=== PATIENT | female | born 1930 | race Caucasian/White ===

== ENCOUNTER → 2016-05-09 | Outpatient (CLI) | payer MEDICARE, OTHER ==
[~2016-05-09] MED LIST: CALCIUM CITRATE PO; GLUC1500 PO; HYDR12.58 PO; MELO-190 PO; MULT1TAB60 PO; NAPR500T3 PO; OMEG300C PO; VITA100C8 PO; VITA1TAB3 PO
== END | disposition home or self-care (01) ==
LOC: ROC 14:51
PROVIDERS: ATTEND Radiology Radiation Oncology
DX: R91.1 Solitary pulmonary nodule (principal); Z85.118 Personal history of other malignant neoplasm of bronchus and lung; Z90.2 Acquired absence of lung [part of]
CPT/HCPCS: G0463

== ENCOUNTER → 2016-06-18 | Outpatient (CLI) | payer MEDICARE, OTHER | END | disposition home or self-care (01) | LOC: ROC 11:28 | PROVIDERS: ATTEND Radiology Radiation Oncology | DX: C34.91 Malignant neoplasm of unspecified part of right bronchus or lung (principal) | CPT/HCPCS: G0463 ==

== ENCOUNTER → 2016-08-14 | Outpatient (CLI) | payer MEDICARE, OTHER | END | disposition home or self-care (01) | LOC: CFH 10:05 | PROVIDERS: ATTEND Radiology Radiation Oncology | DX: C34.11 Malignant neoplasm of upper lobe, right bronchus or lung (principal) | CPT/HCPCS: 71250 ==

== ENCOUNTER → 2016-10-08 | Outpatient (CLI) | payer MEDICARE, OTHER | END | disposition home or self-care (01) | LOC: ROC 10:32 → EDSTATUS 16:51 | PROVIDERS: ATTEND Radiology Radiation Oncology | DX: R91.8 Other nonspecific abnormal finding of lung field (principal); M25.511 Pain in right shoulder; Z87.891 Personal history of nicotine dependence; Z85.118 Personal history of other malignant neoplasm of bronchus and lung | CPT/HCPCS: G0463 ==

== ENCOUNTER → 2016-12-03 | Outpatient (CLI) | payer MEDICARE, OTHER ==
[~2016-12-03] MED LIST changes: -MELO-190 PO; +MELO7.5T31 PO
== END | disposition home or self-care (01) ==
LOC: CFH 09:36
PROVIDERS: ATTEND Radiology Radiation Oncology
DX: I31.3 Pericardial effusion (noninflammatory) (principal); C34.11 Malignant neoplasm of upper lobe, right bronchus or lung; J43.9 Emphysema, unspecified
CPT/HCPCS: 71250

== ENCOUNTER → 2016-12-06 | Outpatient (CLI) | payer MEDICARE, OTHER | END | disposition home or self-care (01) | LOC: ROC 11:04 | PROVIDERS: ATTEND Radiology Radiation Oncology | DX: Z08 Encounter for follow-up examination after completed treatment for malignant neoplasm (principal); C34.90 Malignant neoplasm of unspecified part of unspecified bronchus or lung | CPT/HCPCS: 99213; G0463 ==

== ENCOUNTER → 2017-03-25 | Outpatient (CLI) | payer MEDICARE, OTHER ==
[~2017-03-25] MED LIST changes: -GLUC1500 PO; +GLUC15006 PO; +LIDOCAINE 1%, 20ML ONE; -NAPR500T3 PO; +NAPR500T4 PO
== END ==
LOC: RAD 12:30
PROVIDERS: ATTEND Radiology Radiation Oncology
DX: C34.11 Malignant neoplasm of upper lobe, right bronchus or lung (principal)
CPT/HCPCS: 20206; 76942; 88305; J3490; 88341; 88342; 88360; G0461

== ENCOUNTER → 2017-03-28 | Outpatient (CLI) | payer MEDICARE, OTHER ==
[~2017-03-28] MED LIST changes: +GADOBUTROL 7.5 MMOL/7.5 ML VIAL ONE; -LIDOCAINE 1%, 20ML ONE
== END | disposition home or self-care (01) ==
LOC: CFH 09:45
PROVIDERS: ATTEND Radiology Radiation Oncology
DX: C34.11 Malignant neoplasm of upper lobe, right bronchus or lung (principal); R22.1 Localized swelling, mass and lump, neck
CPT/HCPCS: 70543; 70553; A9585

== ENCOUNTER → 2017-04-01 | Outpatient (CLI) | payer MEDICARE, OTHER ==
[~2017-04-01] MED LIST changes: -GADOBUTROL 7.5 MMOL/7.5 ML VIAL ONE
== END | disposition home or self-care (01) ==
LOC: ROC 09:15
PROVIDERS: ATTEND Radiology Radiation Oncology
DX: Z08 Encounter for follow-up examination after completed treatment for malignant neoplasm (principal); J44.9 Chronic obstructive pulmonary disease, unspecified; Z85.118 Personal history of other malignant neoplasm of bronchus and lung; Z92.3 Personal history of irradiation; Z80.3 Family history of malignant neoplasm of breast; Z90.2 Acquired absence of lung [part of]; Z87.891 Personal history of nicotine dependence
CPT/HCPCS: G0463

== ENCOUNTER → 2017-05-03 | Outpatient (CLI) | payer MEDICARE, OTHER | LOC: ROC 12:49 | PROVIDERS: ATTEND Radiology Radiation Oncology | DX: C77.9 Secondary and unspecified malignant neoplasm of lymph node, unspecified (principal); Z85.118 Personal history of other malignant neoplasm of bronchus and lung; Z90.2 Acquired absence of lung [part of] | CPT/HCPCS: G0463 ==

== ENCOUNTER → 2017-08-02 | Outpatient (CLI) | payer MEDICARE, OTHER ==
[~2017-08-02] MED LIST changes: +NAPR-685 PO; -NAPR500T4 PO
== END | disposition home or self-care (01) ==
LOC: ROC 08:45
PROVIDERS: ATTEND Radiology Radiation Oncology
DX: Z08 Encounter for follow-up examination after completed treatment for malignant neoplasm (principal); I89.0 Lymphedema, not elsewhere classified; M25.511 Pain in right shoulder
CPT/HCPCS: G0463

== ENCOUNTER → 2017-08-26 | Outpatient (CLI) | payer MEDICARE, OTHER | END | disposition home or self-care (01) | LOC: CFH 12:48 | PROVIDERS: ATTEND Radiology Radiation Oncology | DX: C34.90 Malignant neoplasm of unspecified part of unspecified bronchus or lung (principal); M51.34 Other intervertebral disc degeneration, thoracic region; R91.1 Solitary pulmonary nodule; I31.3 Pericardial effusion (noninflammatory); J43.2 Centrilobular emphysema | CPT/HCPCS: 71250 ==

== ENCOUNTER → 2017-08-29 | Outpatient (CLI) | payer MEDICARE, OTHER | END | disposition home or self-care (01) | LOC: ROC 08:31 | PROVIDERS: ATTEND Radiology Radiation Oncology | DX: Z08 Encounter for follow-up examination after completed treatment for malignant neoplasm (principal); C34.11 Malignant neoplasm of upper lobe, right bronchus or lung | CPT/HCPCS: G0463 ==

== ENCOUNTER → 2017-09-24 | Outpatient (CLI) | payer MEDICARE, OTHER | END | disposition home or self-care (01) | LOC: ROC 07:05 | PROVIDERS: ATTEND Radiology Radiation Oncology | DX: C77.0 Secondary and unspecified malignant neoplasm of lymph nodes of head, face and neck (principal); C34.11 Malignant neoplasm of upper lobe, right bronchus or lung | CPT/HCPCS: G0463 ==

== ENCOUNTER → 2017-09-30 | Outpatient (CLI) | payer MEDICARE, OTHER ==
[~2017-09-30] MED LIST changes: +GADOBUTROL 7.5 MMOL/7.5 ML PFS ONE
== END | disposition home or self-care (01) ==
LOC: RAD 09:26
PROVIDERS: ATTEND Radiology Radiation Oncology
DX: C77.0 Secondary and unspecified malignant neoplasm of lymph nodes of head, face and neck (principal); C34.11 Malignant neoplasm of upper lobe, right bronchus or lung
CPT/HCPCS: 70543; A9585

== ENCOUNTER 2017-11-20 10:23 | Inpatient (IN) | payer MEDICARE, OTHER ==
[~2017-11-20] VITALS: Ht 157.5 cm; Wt 36.7 kg
[~2017-11-20 10:23] MED LIST changes: -GADOBUTROL 7.5 MMOL/7.5 ML PFS ONE
[2017-11-20] MEDS ORDERED: SODIUM CHLORIDE FLUSH 10ML SYR IVF ONE (11:00)
[2017-11-20 11:39] LABS: INTERNATIONAL NORMALIZED RATIO 1.08 (0.93-1.1); PROTHROMBIN TIME 11.2 Seconds (9.6-11.5)
[2017-11-20 11:40] LABS: ALANINE AMINOTRANSFERASE 15 U/L (12-78); ALBUMIN 2.8 g/dL (3.4-5.0); ANION GAP 9 mmol/L (5-15); BASOPHILS # (AUTO) 0.02 x10^3/uL (0-0.1); BASOPHILS % (AUTO) 0 % (0-1); CALCIUM 8.9 mg/dL (8.5-10.1); CHLORIDE 105 mmol/L (98-107); CREATININE 0.66 mg/dL (0.55-1.02); EOSINOPHILS # (AUTO) 0.02 x10^3/uL (0-0.4); EOSINOPHILS % (AUTO) 0 % (1-7); LYMPHOCYTES # (AUTO) 0.86 x10^3/uL (1-3.4); LYMPHOCYTES % (AUTO) 7 % (22-44); MD NO; MEAN CORPUSCULAR HEMOGLOBIN 30.3 pg (27.0-34.8); MEAN CORPUSCULAR HGB CONC 32.4 g/dL (32.4-35.8); MEAN CORPUSCULAR VOLUME 93.6 fL (80-100); MEAN PLATELET VOLUME 6.7 fL (7.4-10.4); MONOCYTES % (AUTO) 6 % (2-9); NEUTROPHILS % (AUTO) 86 % (42-75); PLATELET COUNT 499 x10^3/uL (130-400); RED BLOOD COUNT 4.35 x10^6/uL (3.82-5.3); RED CELL DISTRIBUTION WIDTH 15.2 % (9.6-15.2)
[2017-11-20 11:45] LABS: ALKALINE PHOSPHATASE 108 U/L (45-117); BILIRUBIN,TOTAL 0.6 mg/dL (0.2-1.0); TOTAL PROTEIN 6.6 g/dL (6.4-8.2); TROPONIN I < 0.015 ng/mL (0.000-0.045)
[2017-11-20] MEDS ORDERED: SODIUM CHLORIDE 0.9% 1,000 ML IV ONE (13:06)
[2017-11-20] MEDS ORDERED: SODIUM CHLORIDE 0.9% 1,000ML IVBOLUS ONE (13:30)
[2017-11-20] MEDS ORDERED: SODIUM CHLORIDE FLUSH 10ML SYR IVF PRN (13:30)
[2017-11-20] MEDS ORDERED: TRAM100T13 PO (13:43)
[2017-11-20 14:06] VITALS: BP 126/64
[2017-11-20] MEDS ORDERED: NS + 20MEQ KCL 1,000 ML IV SCH (14:27)
[2017-11-20] MEDS ORDERED: DOCUSATE 100 MG CAPSULE PO PRN (14:30)
[2017-11-20] MEDS ORDERED: ACETAMINOPHEN 325 MG TABLET PO PRN (14:30)
[2017-11-20] MEDS ORDERED: POLYETHYLENE GLYCOL 17 GM PACKET PO PRN (14:30)
[2017-11-20] MEDS ORDERED: ONDANSETRON 2MG/ML, 2ML IVPush PRN (14:30)
[2017-11-20] MEDS: CEFTRIAXONE PMX 1GM/50ML 50 ML IV SCH (15:19)
[2017-11-20] MEDS: ENOXAPARIN 40 MG/0.4 ML SQ SCH (15:20)
[2017-11-20 19:44] VITALS: BP 96/60
[2017-11-20] MEDS: NAPROXEN 500 MG TABLET PO SCH (20:58)
[2017-11-21 02:29] VITALS: BP 113/65
[2017-11-21 04:38] LABS: BASOPHILS # (AUTO) 0.02 x10^3/uL (0-0.1); BASOPHILS % (AUTO) 0 % (0-1); EOSINOPHILS # (AUTO) 0.07 x10^3/uL (0-0.4); EOSINOPHILS % (AUTO) 1 % (1-7); LYMPHOCYTES # (AUTO) 1.05 x10^3/uL (1-3.4); LYMPHOCYTES % (AUTO) 13 % (22-44); MD NO; MEAN CORPUSCULAR HEMOGLOBIN 30.5 pg (27.0-34.8); MEAN CORPUSCULAR HGB CONC 32.6 g/dL (32.4-35.8); MEAN CORPUSCULAR VOLUME 93.4 fL (80-100); MEAN PLATELET VOLUME 6.7 fL (7.4-10.4); MONOCYTES # (AUTO) 0.66 x10^3/uL (0.2-0.8); MONOCYTES % (AUTO) 8 % (2-9); NEUTROPHILS # (AUTO) 6.32 x10^3/uL (1.8-6.8); NEUTROPHILS % (AUTO) 78 % (42-75); PLATELET COUNT 442 x10^3/uL (130-400); RED BLOOD COUNT 3.83 x10^6/uL (3.82-5.3); RED CELL DISTRIBUTION WIDTH 15.6 % (9.6-15.2)
[2017-11-21 04:47] LABS: ANION GAP 8 mmol/L (5-15); CHLORIDE 112 mmol/L (98-107); CREATININE 0.37 mg/dL (0.55-1.02)
[2017-11-21 05:41] LABS: CULTURE INDICATED? YES; MICROSCOPIC INDICATED
[2017-11-21 06:30] VITALS: BP 130/73
[2017-11-21] MEDS ORDERED: TEMPLATE NON-FORMULARY MED. (Glucosamine Hcl** 1,500 MG) PO SCH (09:00)
[2017-11-21] MEDS: MULTIVITAMIN 1 TABLET PO SCH (09:50)
[2017-11-21] MEDS: SENNA/DOCUSATE TABLET PO SCH (09:50)
[2017-11-21] MEDS: NAPROXEN 500 MG TABLET PO SCH ×2 (09:51→21:10)
[2017-11-21 13:55] VITALS: BP 96/62
[2017-11-21] MEDS ORDERED: NS + 20MEQ KCL 1,000 ML IV SCH (14:30)
[2017-11-21] MEDS: ENOXAPARIN 40 MG/0.4 ML SQ SCH (15:17)
[2017-11-21] MEDS: CEFTRIAXONE PMX 1GM/50ML 50 ML IV SCH (15:17)
[2017-11-21 19:46] VITALS: BP 102/63
[2017-11-22 00:39] VITALS: BP 97/61
[2017-11-22 08:00] VITALS: BP 124/76
[2017-11-22] MEDS: SENNA/DOCUSATE TABLET PO SCH (10:12)
[2017-11-22] MEDS: MULTIVITAMIN 1 TABLET PO SCH (10:12)
[2017-11-22] MEDS: NAPROXEN 500 MG TABLET PO SCH (10:13)
[2017-11-22 12:26] VITALS: BP 107/68
[2017-11-22] MEDS ORDERED: SULF1TAB24 PO (13:48)
[2017-11-22] MEDS ORDERED: ENOXAPARIN 30 MG/0.3 ML SQ SCH (15:00)
== END 2017-11-22 15:55 | disposition home or self-care (01) | DRG 871 ==
LOC: ED 12:30 → EDIP 13:06 → 4NOR 13:59 → DCLOUNGE 11-22 15:45
PROVIDERS: ADMIT Hospitalist; ATTEND Family Medicine
DX: A41.9 Sepsis, unspecified organism (principal); L89.93 Pressure ulcer of unspecified site, stage 3; E43 Unspecified severe protein-calorie malnutrition; N39.0 Urinary tract infection, site not specified; Z68.1 Body mass index [BMI] 19.9 or less, adult; E86.0 Dehydration; F03.90 Unspecified dementia, unspecified severity, without behavioral disturbance, psychotic disturbance, mood disturbance, and anxiety; J44.9 Chronic obstructive pulmonary disease, unspecified; R62.7 Adult failure to thrive; Z66 Do not resuscitate; Z80.8 Family history of malignant neoplasm of other organs or systems; Z85.118 Personal history of other malignant neoplasm of bronchus and lung; Z85.6 Personal history of leukemia; Z79.899 Other long term (current) drug therapy
CPT/HCPCS: 36415; 71045; 80048; 80053; 81001; 83880; 84484; 85025; 85610; 85730; 87040; 87086; 93005; 99285; G0378; J0696; J1650; J3480; J7030